=== PATIENT | female | born 1980 | race Caucasian/White ===

== ENCOUNTER 2020-11-20 17:08 | Emergency (ER) | payer OTHER ==
[~2020-11-20 17:08] MED LIST: ASPIR 8181 MG PO; BACTRIM DS TAB1 EACH PO; CYMBALTA 30MG C30 MG PO; FLEXERIL10 MG PO; LEVAQUIN500 MG PO; LEVAQUIN750 MG PO; NORCO 5-325 TA1 EACH PO; PHENERGAN12.5 M1 PO; TRAZODONE 50MG50 MG PO; VALIUM2 MG PO
[2020-11-20 19:08] LABS: BASOPHIL 0.4 % (0-2); EOSINOPHIL 1.6 % (0-5); HCT 44.7 % (37.0-47.0); HGB 14.6 g/dl (12.5-16.0); LYMPHOCYTE 33.7 % (15-48); MCH 29.1 pg (25.0-31.0); MCHC 32.7 g/dL (32.0-36.0); MONOCYTE 10.3 % (0-12); MPV 9.6 fL (6.0-9.5); NEUTROPHIL 53.1 % (41-80); NRBC 0; PLT 368 K/uL (150-400); RBC 5.02 M/uL (4.20-5.40); RDW 13.4 % (11.5-14.0); WBC 8.1 K/uL (4.0-10.5)
[2020-11-20 19:33] LABS: ALBUMIN 3.8 g/dL (3.4-5.0); BILIRUBIN - TOTAL 0.4 mg/dL (0.2-1.0); BUN/CREAT RATIO (CALC) 12.9 RATIO; CREATININE 0.93 mg/dL (0.51-0.95); GLOBULIN (CALCULATION) 3.8 g/dL; POTASSIUM 4.1 mmol/L (3.5-5.1); TOTAL PROTEIN 7.6 g/dL (6.4-8.2)
[2020-11-20 20:08] LABS: INR 0.98 (0.9-1.2); PROTHROMBIN TIME 12.4 SECONDS (11.8-13.4); PTT 26.5 SECONDS (24.4-34.7)
[2020-11-20 20:09] LABS: D-DIMER 0.7 ug/mLFEU (0.00-0.41)
[2020-11-20 20:14] LABS: CORONAVIRUS 2019 SARS-COV-2 NEGATIVE (NEGATIVE); INFLUENZA A NAA NEGATIVE (NEGATIVE)
[2020-11-20 20:42] LABS: BILIRUBIN NEGATIVE (NEGATIVE); BLOOD NEGATIVE Ery/uL (NEGATIVE); CLARITY HAZY (CLEAR); COLOR YELLOW (YELLOW); GLUCOSE (U) NORMAL (NORMAL); LEUKOCYTES 2+ Leu/uL (NEGATIVE); NITRITE POSITIVE (NEGATIVE); PROTEIN NEGATIVE (NEGATIVE); UROBILINOGEN 0.2 mg/dL (0.2-1.0)
[2020-11-20 20:46] LABS: BACTERIA 4+; URINARY RBC RARE
[2020-11-20 21:30] LABS: C-REACTIVE PROTEIN 0.7 mg/dL (<=0.90); MAGNESIUM 2.2 mg/dL (1.8-2.4)
[2020-11-20 21:50] LABS: LACTIC ACID 1.7 mmol/L (0.4-1.9)
[2020-11-20 22:14] LABS: PRO-BNP 83 pg/mL (<125)
[2020-11-20] MEDS ORDERED: PHENERGAN25 M1 PO (22:52)
[2020-11-20] MEDS ORDERED: CEFDINIR300 MG PO (22:52)
[2020-11-20] MEDS ORDERED: NORCO 5-325 TA1 EACH PO (22:52)
== END 2020-11-20 23:47 | disposition home or self-care (01) ==
LOC: FER 17:08
PROVIDERS: Emergency Medicine; Internal Medicine
DX: N39.0 Urinary tract infection, site not specified (principal); Z88.8 Allergy status to other drugs, medicaments and biological substances; Z88.1 Allergy status to other antibiotic agents; Z20.822 Contact with and (suspected) exposure to COVID-19
CPT/HCPCS: 36415; 71275; 80053; 81001; 82550; 82728; 83605; 83615; 83690; 83735; 83880; 84145; 84443; 84484; 84550; 85025; 85379; 85610; 85730; 86140; 87040; 87076; 87088; 87186; 93005; J0696; J1170; J2550; J7030; Q9967; U0002

== ENCOUNTER 2020-11-30 10:38 | Emergency (ER) | payer OTHER ==
[~2020-11-30 10:38] MED LIST changes: +CEFDINIR300 MG PO; +PHENERGAN25 M1 PO
[2020-11-30 11:52] LABS: BASOPHIL 0.2 % (0-2); EOSINOPHIL 0.9 % (0-5); HGB 13.2 g/dl (12.5-16.0); LYMPHOCYTE 12.2 % (15-48); MCH 29.3 pg (25.0-31.0); MCHC 32.2 g/dL (32.0-36.0); MCV 91.1 fL (78.0-100.0); MONOCYTE 12.3 % (0-12); MPV 9.7 fL (6.0-9.5); NRBC 0; PLT 304 K/uL (150-400); RDW 13.5 % (11.5-14.0); WBC 12.2 K/uL (4.0-10.5)
[2020-11-30 12:01] LABS: MONOSPOT (MONONUCLEOSIS) NEGATIVE (NEGATIVE)
[2020-11-30 12:19] LABS: ALBUMIN 2.9 g/dL (3.4-5.0); BILIRUBIN - TOTAL 0.4 mg/dL (0.2-1.0); BUN/CREAT RATIO (CALC) 9.4 RATIO; CREATININE 0.85 mg/dL (0.51-0.95); GLOBULIN (CALCULATION) 4.2 g/dL; POTASSIUM 4.1 mmol/L (3.5-5.1); TOTAL PROTEIN 7.1 g/dL (6.4-8.2)
[2020-11-30] MEDS ORDERED: CLEOCIN300 MG PO (13:14)
[2020-11-30] MEDS ORDERED: MEDROL 4MG DOSEP4 MG PO (13:14)
[2020-11-30] MEDS ORDERED: NORCO 5-325 TA1 EACH PO (13:14)
== END 2020-11-30 13:56 | disposition home or self-care (01) ==
LOC: FER 10:38
PROVIDERS: Emergency Medicine
DX: J02.9 Acute pharyngitis, unspecified (principal); Z88.8 Allergy status to other drugs, medicaments and biological substances; Z91.041 Radiographic dye allergy status; Z88.1 Allergy status to other antibiotic agents
CPT/HCPCS: 36415; 80053; 82728; 83615; 85025; 86140; 86308; 87880; J1100; J1170; J2550; J7030

== ENCOUNTER 2021-01-27 22:48 | Emergency (ER) | payer OTHER ==
[~2021-01-27 22:48] MED LIST changes: +CLEOCIN300 MG PO; +MEDROL 4MG DOSEP4 MG PO
[2021-01-28 00:35] LABS: BASOPHIL 0.7 % (0-2); EOSINOPHIL 3.4 % (0-5); HCT 39.9 % (37.0-47.0); HGB 12.7 g/dl (12.5-16.0); LYMPHOCYTE 29.4 % (15-48); MCH 29.1 pg (25.0-31.0); MCHC 31.8 g/dL (32.0-36.0); MCV 91.5 fL (78.0-100.0); MONOCYTE 11.3 % (0-12); MPV 10.3 fL (6.0-9.5); NEUTROPHIL 54.9 % (41-80); NRBC 0; PLT 257 K/uL (150-400); RBC 4.36 M/uL (4.20-5.40); RDW 13.4 % (11.5-14.0); WBC 7.4 K/uL (4.0-10.5)
[2021-01-28 00:38] LABS: BILIRUBIN NEGATIVE (NEGATIVE); BLOOD NEGATIVE Ery/uL (NEGATIVE); CLARITY CLEAR (CLEAR); COLOR YELLOW (YELLOW); GLUCOSE (U) NORMAL (NORMAL); LEUKOCYTES TRACE Leu/uL (NEGATIVE); NITRITE NEGATIVE (NEGATIVE); PROTEIN NEGATIVE (NEGATIVE); SPECIFIC GRAVITY >=1.030 (1.001-1.030); UROBILINOGEN 0.2 mg/dL (0.2-1.0)
[2021-01-28 00:45] LABS: BACTERIA 1+; CALCIUM OXALATE CRYSTALS LARGE; SQUAMOUS EPITHELIAL CELLS >50; URINARY RBC RARE; URINARY WBC RARE
[2021-01-28 00:46] LABS: ALBUMIN 3.2 g/dL (3.4-5.0); BILIRUBIN - TOTAL 0.2 mg/dL (0.2-1.0); CREATININE 0.84 mg/dL (0.51-0.95); GLOBULIN (CALCULATION) 4.1 g/dL; POTASSIUM 3.7 mmol/L (3.5-5.1); TOTAL PROTEIN 7.3 g/dL (6.4-8.2)
== END 2021-01-28 02:45 | disposition home or self-care (01) ==
LOC: FER 22:48
PROVIDERS: Internal Medicine
DX: M79.662 Pain in left lower leg (principal); R60.0 Localized edema; I11.0 Hypertensive heart disease with heart failure; I50.9 Heart failure, unspecified; Z88.8 Allergy status to other drugs, medicaments and biological substances; Z91.040 Latex allergy status; Z79.82 Long term (current) use of aspirin; Z79.899 Other long term (current) drug therapy; Z86.718 Personal history of other venous thrombosis and embolism
CPT/HCPCS: 36415; 80053; 81001; 83880; 85025; 93970

== ENCOUNTER 2021-03-09 03:47 | Emergency (ER) | payer OTHER ==
[2021-03-09 04:37] LABS: BASOPHIL 0.4 % (0-2); EOSINOPHIL 1.9 % (0-5); HCT 40.8 % (37.0-47.0); HGB 13.3 g/dl (12.5-16.0); LYMPHOCYTE 26.5 % (15-48); MCH 28.8 pg (25.0-31.0); MCHC 32.6 g/dL (32.0-36.0); MCV 88.3 fL (78.0-100.0); MONOCYTE 12.3 % (0-12); NEUTROPHIL 58.5 % (41-80); NRBC 0; PLT 369 K/uL (150-400); RBC 4.62 M/uL (4.20-5.40); RDW 13.2 % (11.5-14.0); WBC 11.1 K/uL (4.0-10.5)
[2021-03-09 04:57] LABS: BILIRUBIN NEGATIVE (NEGATIVE); BLOOD 1+ Ery/uL (NEGATIVE); CLARITY CLEAR (CLEAR); COLOR YELLOW (YELLOW); GLUCOSE (U) NORMAL (NORMAL); LEUKOCYTES NEGATIVE Leu/uL (NEGATIVE); NITRITE NEGATIVE (NEGATIVE); PROTEIN NEGATIVE (NEGATIVE); SPECIFIC GRAVITY 1.025 (1.001-1.030); UROBILINOGEN 0.2 mg/dL (0.2-1.0)
[2021-03-09 04:58] LABS: ALBUMIN 3.4 g/dL (3.4-5.0); BILIRUBIN - TOTAL 0.2 mg/dL (0.2-1.0); BUN/CREAT RATIO (CALC) 17.5 RATIO; CREATININE 0.97 mg/dL (0.51-0.95); POTASSIUM 2.7 mmol/L (3.5-5.1); TOTAL PROTEIN 7.4 g/dL (6.4-8.2)
[2021-03-09 05:38] LABS: LACTIC ACID 1.5 mmol/L (0.4-1.9)
== END 2021-03-09 08:25 | disposition home or self-care (01) ==
LOC: FER 03:47
PROVIDERS: Emergency Medicine
DX: R07.89 Other chest pain (principal); R06.00 Dyspnea, unspecified; I11.0 Hypertensive heart disease with heart failure; I50.9 Heart failure, unspecified; I25.10 Atherosclerotic heart disease of native coronary artery without angina pectoris; Z88.1 Allergy status to other antibiotic agents; Z88.8 Allergy status to other drugs, medicaments and biological substances; Z20.822 Contact with and (suspected) exposure to COVID-19
CPT/HCPCS: 36415; 71045; 71275; 80053; 81001; 83605; 83880; 84439; 84443; 84484; 85025; 87040; J3010; J3480; Q9967; U0002

== ENCOUNTER 2021-03-27 10:49 | Emergency (ER) | payer OTHER ==
[~2021-03-27] VITALS: Ht 157.5 cm; Wt 85.0 kg
[2021-03-27 16:28] LABS: CREATININE 0.88 mg/dL (0.51-0.95); POTASSIUM 3.6 mmol/L (3.5-5.1)
[2021-03-27 16:36] LABS: BASOPHIL 0.2 % (0-2); HCT 39.3 % (37.0-47.0); HGB 12.5 g/dl (12.5-16.0); LYMPHOCYTE 22.1 % (15-48); MCH 28.3 pg (25.0-31.0); MCHC 31.8 g/dL (32.0-36.0); MCV 89.1 fL (78.0-100.0); MONOCYTE 15.4 % (0-12); MPV 10.3 fL (6.0-9.5); NEUTROPHIL 59.8 % (41-80); NRBC 0; PLT 336 K/uL (150-400); RBC 4.41 M/uL (4.20-5.40); RDW 13.2 % (11.5-14.0); WBC 12.2 K/uL (4.0-10.5)
[2021-03-27 20:19] LABS: INR 1.12 (0.9-1.2); PROTHROMBIN TIME 13.8 SECONDS (11.8-13.4); PTT 38.6 SECONDS (24.4-34.7)
[2021-03-27 23:37] LABS: INFLUENZA A NAA NEGATIVE (NEGATIVE)
[2021-03-27 23:39] LABS: CORONAVIRUS 2019 SARS-COV-2 POSITIVE (NEGATIVE)
== END 2021-03-27 23:30 | disposition other institution (70) ==
LOC: FER 10:49
PROVIDERS: Emergency Medicine; Nurse Practitioner Family
DX: U07.1 COVID-19 (principal); J12.82 Pneumonia due to coronavirus disease 2019; I26.99 Other pulmonary embolism without acute cor pulmonale; I11.0 Hypertensive heart disease with heart failure; I50.9 Heart failure, unspecified; Z91.040 Latex allergy status; Z79.899 Other long term (current) drug therapy
CPT/HCPCS: 31500; 36415; 36600; 71045; 71275; 80048; 82803; 83605; 84145; 85025; 85379; 85610; 85730; 87040; 96365; 96368; 96375; C9113; J1100; J1644; J2250; J2550; J2704; J2997; J3010; J7030; Q9967; U0002

== ENCOUNTER 2021-05-17 17:16 | Emergency (ER) | payer OTHER ==
[2021-05-17 18:15] LABS: BASOPHIL 0.8 % (0-2); EOSINOPHIL 2.6 % (0-5); HCT 43.4 % (37.0-47.0); HGB 14.3 g/dl (12.5-16.0); LYMPHOCYTE 31.1 % (15-48); MCH 28.4 pg (25.0-31.0); MCHC 32.9 g/dL (32.0-36.0); MCV 86.3 fL (78.0-100.0); MONOCYTE 10.9 % (0-12); MPV 9.8 fL (6.0-9.5); NEUTROPHIL 54.4 % (41-80); NRBC 0; PLT 320 K/uL (150-400); RBC 5.03 M/uL (4.20-5.40); RDW 14.8 % (11.5-14.0); WBC 9.6 K/uL (4.0-10.5)
[2021-05-17 18:26] LABS: INR 1.22 (0.9-1.2); PROTHROMBIN TIME 14.8 SECONDS (11.8-13.4)
[2021-05-17 18:27] LABS: PTT 28.5 SECONDS (24.4-34.7)
[2021-05-17 18:28] LABS: D-DIMER 0.32 ug/mLFEU (0.00-0.41)
[2021-05-17 18:40] LABS: ALBUMIN 3.4 g/dL (3.4-5.0); BILIRUBIN - TOTAL 0.5 mg/dL (0.2-1.0); BUN/CREAT RATIO (CALC) 13.2 RATIO; CREATININE 0.91 mg/dL (0.51-0.95); FT4 (FREE T4) 0.8 ng/dL (0.76-1.46); GLOBULIN (CALCULATION) 4.1 g/dL; MAGNESIUM 1.7 mg/dL (1.8-2.4); POTASSIUM 3.3 mmol/L (3.5-5.1); TOTAL PROTEIN 7.5 g/dL (6.4-8.2)
[2021-05-17 21:05] LABS: BILIRUBIN NEGATIVE (NEGATIVE); BLOOD NEGATIVE Ery/uL (NEGATIVE); CLARITY CLEAR (CLEAR); COLOR YELLOW (YELLOW); GLUCOSE (U) NORMAL (NORMAL); LEUKOCYTES NEGATIVE Leu/uL (NEGATIVE); NITRITE NEGATIVE (NEGATIVE); PROTEIN NEGATIVE (NEGATIVE); SPECIFIC GRAVITY 1.025 (1.001-1.030); UROBILINOGEN 0.2 mg/dL (0.2-1.0); pH 5.5 (5.0-9.0)
== END 2021-05-17 23:10 | disposition home or self-care (01) ==
LOC: FER 17:16
PROVIDERS: Emergency Medicine; Nurse Practitioner Family
DX: E87.6 Hypokalemia (principal); E83.42 Hypomagnesemia; Z88.1 Allergy status to other antibiotic agents; Z88.8 Allergy status to other drugs, medicaments and biological substances; Z91.040 Latex allergy status
CPT/HCPCS: 36415; 70450; 71045; 80053; 81003; 83735; 83880; 84439; 84443; 84484; 85025; 85379; 85610; 85730; 93005; J2060; J2405; J2550; J3475; J3480

== ENCOUNTER 2021-11-27 09:47 | Emergency (ER) | payer MEDICARE, OTHER ==
[2021-11-27 10:31] LABS: BASOPHIL 0.8 % (0-2); HCT 43.8 % (37.0-47.0); HGB 14.4 g/dl (12.5-16.0); MCH 28.3 pg (25.0-31.0); MCHC 32.9 g/dL (32.0-36.0); MCV 86.2 fL (78.0-100.0); MONOCYTE 11.3 % (0-12); MPV 10.6 fL (6.0-9.5); NEUTROPHIL 49.3 % (41-80); NRBC 0; PLT 288 K/uL (150-400); RBC 5.08 M/uL (4.20-5.40); RDW 13.9 % (11.5-14.0); WBC 6.4 K/uL (4.0-10.5)
[2021-11-27 10:34] LABS: INR 1.01 (0.9-1.2); PTT 27.3 SECONDS (24.9-34.6)
[2021-11-27 10:43] LABS: ALBUMIN 3.3 g/dL (3.4-5.0); BILIRUBIN - TOTAL 0.3 mg/dL (0.2-1.0); BUN/CREAT RATIO (CALC) 12.1 RATIO; CREATININE 0.99 mg/dL (0.51-0.95); GLOBULIN (CALCULATION) 3.9 g/dL; POTASSIUM 3.7 mmol/L (3.5-5.1); TOTAL PROTEIN 7.2 g/dL (6.4-8.2)
[2021-11-27 11:25] LABS: CLARITY CLEAR (CLEAR); COLOR YELLOW (YELLOW); GLUCOSE (U) NORMAL (NORMAL); PROTEIN TRACE (LOW) mg/dL (NEGATIVE); pH 7.5 (5.0-9.0)
[2021-11-27 11:26] LABS: BILIRUBIN NEGATIVE (NEGATIVE); BLOOD NEGATIVE Ery/uL (NEGATIVE); LEUKOCYTES 1+ Leu/uL (NEGATIVE); NITRITE NEGATIVE (NEGATIVE)
[2021-11-27 11:30] LABS: BACTERIA 1+
[2021-11-27] MEDS ORDERED: PHENERGAN12.5 M1 PO (12:05)
== END 2021-11-27 10:38 | disposition home or self-care (01) ==
LOC: FER 09:47
PROVIDERS: Emergency Medicine
DX: R10.11 Right upper quadrant pain (principal); Z28.310 Unvaccinated for COVID-19
CPT/HCPCS: 36415; 74022; 76705; 80053; 81001; 83690; 84484; 85025; 85610; 85730; 87088; 93005; J2405